=== PATIENT | female | born 1970 | race Caucasian/White ===

== ENCOUNTER 2023-08-02 01:25 | Day surgery (SDC) | payer OTHER, SELFPAY ==
--- NOTE | 2023-07-24 07:18 | P.HP_ITS ---
History of Present Illness History of Present Illness Consent: Risks, benefits, and alternatives have been discussed and questions answered. Patient agrees to proceed with procedure. 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 Recent follow-up renal ultrasound suggested a new 1 cm stone in her right kidney that is calcified by KUB. After discussion of options she elects for cysto with right stent placement and right ESWL. She is aware the risk including, but not limited to, adverse cardiopulmonary events, need for additional procedures, hematuria and perinephric hematoma Review of Systems Review of Systems: All systems reviewed & are unremarkable except as noted in HPI and below Exam Const: General: no acute distress Resp: Effort & Inspection: normal respiratory effort GI: Inspection: non-distended GI Palp: No abdominal tenderness and No Guarding due to palpation present (GI) Auscultation: normal bowel sounds Assessment and Plan Assessment and plan (1) Right kidney stone: Code(s): N20.0 - Calculus of kidney Status: Acute Assessment and Plan: * cystoscopy, right ureteral stent placement, right ESWL
[2023-07-24 14:32] VITALS: BMI 32.1
--- NOTE | 2023-07-24 14:40 | PC.NURSE ---
Report to the Outpatient Waiting Room, entrance under the green pavilion located off [facility], at time _0730_ on date _[id number]_. Planned Procedure Time: _0930_. Time changes happen often and if your time is changed the preop area will call you the afternoon before. - You and your visitor will be asked to self-screen and do not enter if you have any COVID symptoms. - A mask is optional within the hospital at this time. Patients may have clear liquids (water, carbonated beverages, clear teas, apple juice) until 3 hours prior to surgery with a maximum of 20 ounces. - No food from midnight until time of surgery Take the following medications with a SIP of water the morning of surgery: ___Thyroid DO NOT STOP ANY OF YOUR OTHER PRESCRIPTION MEDICATIONS PRIOR TO SURGERY ?EXCEPT THE FOLLOWING Medications to discontinue per physician Semaglutide Date to take last dose Please no make-up, nail honduran, hairspray, perfume, deodorant, or body powder the day of surgery. No jewelry (including any body piercings) or valuables the day of surgery, leave them at home. Please take a shower or bath the night before, or the morning of, surgery with an antibacterial soap. Wear comfortable, loose fitting clothing. - Jewelry must be removed prior to entering the operating room. Rings and piercings that are not removed may be cut off. - The hospital will not accept responsibility for valuables. - Please leave all valuables, including medications, at home the day of surgery. If you are going home after surgery, a licensed charter driver must drive you home. - NO public transportation without another adult if you receive anesthesia. - We recommend that an adult stay with you for 24 hours following discharge. - We also recommend that you do not drive, make important decision, drink alcoholic beverages, or take any drugs that were not prescribed by your health care provider for at least 24 hours after your discharge time. Follow any additional instructions given to you from your surgeon. If you or anyone in your household have experienced Covid symptoms in the past week, please notify your surgeon or the nurse liaison at the phone number below for possible testing. Telephone instructions given to _Michelle and asked if any additional questions and then verbalized understanding. Patient advised to call surgeon office or pre surgery nurse liaison [phone] if any additional questions.
[2023-08-02] VITALS (7 sets, daily range): BP systolic 122–143; BP diastolic 71–93; PULSE 72–98; RESP 13–17; TEMP 36.2–36.3; O2SAT 94–100; BMI 33.2
--- NOTE | ~2023-08-02 | XR_ITS ---
XR abdomen/kub 1V 08/02/2023 08:16 Indication: Right renal stone Procedure: KUB Comparison: No prior studies for comparison. Findings: There is a 4 mm calcification superior to the L2 transverse process on the right, suspiciou s for UPJ stone. There is a larger calcification overlying the right kidney measuring 1.4 cm which ma y represent a renal stone or gallstone. There are pelvic phleboliths. Bowel gas pattern nonobstructiv e.r Impression: 1: Possible 4 mm right UPJ stone at the L2 level. 2: Larger calcification overlying the right kidney measuring 1.4 cm may represent renal stone or gal lstone. Consider correlation with ultrasound. Reviewed, dictated and finalized at location B. Impression: 1: Possible 4 mm right UPJ stone at the L2 level. 2: Larger calcification overlying the right kidney measuring 1.4 cm may repres ent renal stone or gallstone. Consider correlation with ultrasound.
--- NOTE | ~2023-08-02 | CT_ITS ---
Non-contrast CT scan of the Abdomen and Pelvis Clinical indication: Right ureteral stone Technique: 2.5 mm axial scans were obtained through the abdomen and pelvis without intravenous or or al contrast. Dose reduction technique was used on this scan by utilizing automated exposure control a nd iterative reconstruction technique. The dose-length product (DLP) was 608.00 mGy-cm. Findings: Images through the lung bases reveal no abnormalities. Status post presumed left nephrectomy. 13 mm ovoid nonobstructing right upper pole renal stone presen t. Right kidney measures 11 4 with an area of focal probable cortical scarring or possibly possibly o r postsurgical change. There is minimal fullness of the right ureter, but the renal collecting system itself is nondilated. Hepatic cysts are noted. The spleen, pancreas, gallbladder, and adrenals appear normal. There is no aortic aneurysm. There is no evidence of bowel obstruction. Images through the pelvis were performed. There is no evidence of ascites or lymphadenopathy. Urinary bladder unremarkable. No adnexal mass seen. Impression: 13 mm nonobstructing right renal stone. There is minimal. Right ureter, but no dilatation of the righ t renal collecting system. Probable cortical scarring or possibly post ablative or postsurgical change at the mid pole the right kidney. Correlate with any relevant clinical/treatment history. Prior presumed left nephrectomy. Reviewed, dictated and finalized at location . Impression: 13 mm nonobstructing right renal stone. There is minimal. Right ureter, but no dilatation of the right renal collecting system. Probable cortical scarring or possibly post ablative or postsurgical change at the mid pole the right kidney. Correlate with any relevant clinical/treatment h istory. Prior presumed left nephrectomy.
--- NOTE | 2023-08-02 06:23 | WPDHPUPDATE1 ---
History and Physical Update Update Date/Time: 08/02/23 06:23 History and Physical has been reviewed, including an updated exam of the patient. There are NO changes in the patient's condition. Risks, benefits, and alternatives have been discussed and questions answered. Patient agrees to proceed with procedure.
[2023-08-02] MEDS: LACTATED RINGERS 1,000 ML 30 ML IV CONT ×2 (09:00→11:00)
--- NOTE | 2023-08-02 09:35 | WPDANESEPPF ---
Anes - Initial Pre Proc Eval Procedure: Operation Date: 08/02/23 09:30 Proposed Procedures p Right Extracorporeal Shock Wave Lithotripsy - Desean Esparza MD s Cystoscopy, Right Stent Placement - Desean Esparza MD Date/Time: 08/02/23 09:35 Surgeon: Desean Esparza MD Pre Op Diagnosis: Right Ureteral/Renal Stone Patient Data Age: 53 Gender: F Height: 1.63 m Weight: 85 kg Allergies Allergy/AdvReac Type Severity Reaction Status Date / Time levofloxacin [From Levaquin] Allergy Severe Other Verified 07/24/23 14:23 Sulfa (Sulfonamide Allergy Severe Swelling Verified 07/24/23 14:23 Antibiotics) of Lip/Tongue/Throat iohexol AdvReac Other Verified 07/24/23 14:23 [From contrast - CT, X-RAY] oxybutynin AdvReac Other Verified 07/24/23 14:23 Home Medications Medication Instructions Recorded Confirmed Type allopurinol 100 mg tablet 100 mg PO BID 07/24/23 07/24/23 History cyanocobalamin (vitamin B-12) 100 100 mcg [id number] 07/24/23 07/24/23 History mcg/mL injection solution ezetimibe 10 mg tablet 10 mg PO DAILY 07/24/23 07/24/23 History liothyronine 5 mcg tablet 5 mcg PO DAILY 07/24/23 07/24/23 History semaglutide (weight loss) 1.7 1.7 mg subcut WEEKLY 07/24/23 07/24/23 History mg/0.75 mL subcutaneous pen injector testosterone 100 mg implant pellet 100 mg subcut ONCE 07/24/23 07/24/23 History thyroid (pork) 60 mg tablet 60 mg PO DAILY 07/24/23 07/24/23 History ([place] Thyroid) Patient hx anesthesia problems: none Family hx anesthesia problems: none Results Review: All pre-operative results and documents have been reviewed as part of the pre-operative evaluation. ON LICENSE OF [facility] Social History Social History Smoking packs per day: 1 Smoking cigarettes per day: 20.0 Years smoked: 5 Smoking pack-years: 5.00 Smoking status: Former smoker Tobacco type: cigarettes Smoking end date: 07/24/91 Alcohol intake: current Drinks per week: 2 Living arrangements: with family Spiritual care concerns: No Anes - Eval Final PreProcedure Day of Procedure 08/02/23 09:35 Patient weight: overweight Heart: regular rate and rhythm Lungs: clear to auscultation Airway: Mallampati scale class III Neurological: alert and oriented Last oral intake: >/= 8 hours ASA classification: II Emergent: no Anesthetic plan: proceed Anesthesia type and monitoring: general ETT and standard monitoring Results Review: All pre-operative results and documents have been reviewed as part of the pre-operative evaluation. 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 Pt on ozempic for wt loss, last dose 9 days ago. Informed Consent: The patient's anesthetic plan and its attendant risks and benefits were discussed with the patient/family/POA. Questions were solicited and answers provided to the satisfaction of the patient/family/POA.
[2023-08-02] MEDS: ceFAZolin 2 GM/D5W 50 ML 2 GM/50 ML BAG IVPB (09:42)
[2023-08-02] MEDS: LIDOCAINE HCL 2% GEL UROJET 10 ML PKG MUCOUS MEM (10:07)
--- NOTE | 2023-08-02 10:24 | P.OP_ITS ---
Procedure Note - Detailed Date of Procedure 08/02/23 Pre-op Diagnosis Right renal stone and history urethral stricture Post-op Diagnosis Other Procedure Performed Cystoscopy, urethral dilatation, right ureteral stent placement, right ESWL Surgeon Desean Esparza MD Anesthesia General Description of Procedure The patient was brought to the operative suite where she was placed in the frog- legged position on the Dornier lithotripter table. Flexible cystoscopy was undertaken with a 16F flexible cystoscopy. I first dilated her urethra from 14-30 F with female soundsHer urethra and bladder neck were endoscopically normal. The bladder mucosa was normal and there was a single, orthotopic ureteral orifice bilaterally. A 0.035 glidewire was advanced into the right renal pelvis under fluoroscopy. A 4.8F J-J ureteral stent was positioned with the proximal coil in the renal pelvis and the distal coil in the bladder. The patient was then repositioned in the supine position and the focal point of the lithotriptor was placed at a1.2cm right renal calculus. A total of 2500 shocks were delivered at a power setting of 4. There appeared to be good fragmentation of the stone. The patient tolerated the procedure well and was taken to the recovery room in good condition. Drains No Packing No Complications No immediate complications
[2023-08-02] MEDS: fentaNYL CITRATE INJ (*CRX) 100 MCG/2 ML VIAL 25 MCG IV PUSH ×3 (11:05→11:09)
[2023-08-02] MEDS: HYDROcodone/acetaminophen (*CRX) 5-325 MG TABLET 1 TAB PO (11:49)
== END 2023-08-02 12:17 | disposition home or self-care (01) ==
PROVIDERS: Visit Provider Urology
PROC: (CPT 50590; principal; 2023-08-02 09:30)
PROC: (CPT 52352; 2023-08-02 09:30)
DX: N20.0 Calculus of kidney (principal); Z79.85 Long-term (current) use of injectable non-insulin antidiabetic drugs; Z87.891 Personal history of nicotine dependence; Z90.5 Acquired absence of kidney
CPT/HCPCS: 52332; 50590; 74018; 74176; A9270; C1758; C1769; C2617; J0330; J0690; J2405; J2704; J3010; J7030; J7120; Q9966

== ENCOUNTER 2023-08-12 11:10 | Outpatient (CLI) | payer OTHER, SELFPAY ==
--- NOTE | ~2023-08-12 | XR_ITS ---
EXAMINATION: XR abdomen/kub 1V DATE: 08/12/2023 11:25 INDICATION: Calculus of kidney. TECHNIQUE: A supine view of the abdomen on 2 radiographs was obtained. COMPARISON: Abdomen radiograph 08/02/2023, CT abdomen and pelvis 08/02/2023 FINDINGS: There are no dilated loops of bowel. There is a right internal ureteral stent in expected p osition. There are phleboliths in right ovarian vein. There are phleboliths in the pelvis. There are 8 mm and 4 mm densities overlying right kidney upper pole. IMPRESSION: 1. 8 mm and 4 mm densities overlying right kidney upper pole that may be kidney stones. 2. Right internal ureteral stent in expected position. Reviewed, dictated and finalized at location A.
== END 2023-08-12 11:11 | disposition home or self-care (01) ==
LOC: ANHIMG 11:12
PROVIDERS: Visit Provider Urology
DX: N20.0 Calculus of kidney (principal)
CPT/HCPCS: 74018